=== PATIENT | female | born 1995 | race African-American/Black ===

== ENCOUNTER 2020-06-07 15:39 | Emergency (ER) | payer OTHER ==
[~2020-06-07] VITALS: Ht 154.9 cm; Wt 79.8 kg
[2020-06-07 15:59] VITALS: BP 108/66
== END 2020-06-07 17:15 | disposition home or self-care (01) ==
LOC: ER 15:39
DX: J06.9 Acute upper respiratory infection, unspecified (principal)
CPT/HCPCS: 71045